=== PATIENT | male | born 1965 | race Caucasian/White ===

== ENCOUNTER 2018-01-11 15:16 | Emergency (ER) | payer SELFPAY ==
[~2018-01-11] VITALS: Ht 170.2 cm; Wt 122.5 kg
[2018-01-11 18:36] VITALS: BP 176/105
== END 2018-01-11 19:59 | disposition home or self-care (01) ==
LOC: ER 15:16
DX: E11.9 Type 2 diabetes mellitus without complications (principal); I10 Essential (primary) hypertension